=== PATIENT | male | born 1960 | race Caucasian/White ===

== ENCOUNTER 2023-11-05 01:08 | Day surgery (SDC) | payer OTHER, SELFPAY ==
[2023-10-12 12:21] VITALS: BMI 32.0
--- NOTE | 2023-11-03 09:53 | SUR.PREOP ---
Patient called regarding upcoming procedure. Reviewed preop instructions, appointment times, and procedure prep. pt has no further questions.
--- NOTE | 2023-11-03 20:56 | PM.HPGS ---
History of Present Illness History of Present Illness Consent: Risks, benefits, and alternatives have been discussed and questions answered. Patient agrees to proceed with procedure. Chief complaint: hx of colon polyps Narrative: Amilcar Bright is a 63 year old male who is referred for colon cancer screening. He had polyps removed 8 years ago. His last colonoscopy which was 5 years ago was free of polyps. Review of Systems Review of Systems: All systems reviewed & are unremarkable except as noted in HPI and below PMFSH Social History Social History Smoking status: Former smoker Alcohol intake: current Drinks per week: 12 Substance use type: does not use Living arrangements: other Additional living arrangements comments: with sp Meds Home Medications and Allergies Home Medications Medication Instructions Recorded Confirmed Type lisinopril 20 1 tablet PO DAILY 10/12/23 10/12/23 History mg-hydrochlorothiazide 12.5 mg tablet Allergies Allergy/AdvReac Type Severity Reaction Status Date / Time No Known Allergies Allergy Unknown Verified 11/05/23 07:52 Exam Resp: Auscultation: clear to auscultation bilaterally Cardio: Rate: regular rate Rhythm: regular rhythm GI: GI Palp: Yes Soft to palpation and No Tenderness to palpation present (GI) Assessment and Plan Assessment and plan (1) Colon cancer screening: Code(s): Z12.11 - Encounter for screening for malignant neoplasm of colon Status: Acute Assessment and Plan: Colonoscopy with possible biopsy or polypectomy or cautery or injection of substances.
[2023-11-05 07:53] VITALS: BP 125/70; PULSE 76; RESP 18; TEMP 36.1; O2SAT 98
[2023-11-05] MEDS: LACTATED RINGERS 1,000 ML 150 ML IV CONT (08:03)
--- NOTE | 2023-11-05 08:43 | WPDANESEPPF ---
Anes - Initial Pre Proc Eval Procedure: Operation Date: 11/05/23 09:00 Proposed Procedures p Colonoscopy - David Shah MD Date/Time: 11/05/23 08:43 Surgeon: David Shah MD Pre Op Diagnosis: hx of colon polyps Patient Data Age: 63 Gender: M Height: 1.83 m Weight: 105.5 kg Last Vital Signs Temp 97 F L 11/05/23 07:53 Pulse 76 11/05/23 07:53 Resp 18 11/05/23 07:53 BP 125/70 11/05/23 07:53 Pulse Ox 98 11/05/23 07:53 O2 Del Method Room Air 11/05/23 07:53 Allergies Allergy/AdvReac Type Severity Reaction Status Date / Time No Known Allergies Allergy Unknown Verified 11/05/23 07:52 Home Medications Medication Instructions Recorded Confirmed Type lisinopril 20 1 tablet PO DAILY 10/12/23 10/12/23 History mg-hydrochlorothiazide 12.5 mg tablet Patient hx anesthesia problems: none Family hx anesthesia problems: none Results Review: All pre-operative results and documents have been reviewed as part of the pre-operative evaluation. [facility] Social History Social History Smoking status: Former smoker Alcohol intake: current Drinks per week: 12 Substance use type: does not use Living arrangements: other Additional living arrangements comments: with sp Anes - Eval Final PreProcedure Day of Procedure 11/05/23 08:43 Patient weight: obese Heart: regular rate and rhythm Lungs: clear to auscultation Airway: Mallampati scale class II Neurological: alert and oriented Last oral intake: >/= 8 hours ASA classification: II Emergent: no Anesthetic plan: proceed Anesthesia type and monitoring: general GIVS and standard monitoring Results Review: All pre-operative results and documents have been reviewed as part of the pre-operative evaluation. Informed Consent: The patient's anesthetic plan and its attendant risks and benefits were discussed with the patient/family/POA. Questions were solicited and answers provided to the satisfaction of the patient/family/POA.
[2023-11-05 09:26] VITALS: BP 104/53; PULSE 65; RESP 20; O2SAT 95
[2023-11-05 09:36] VITALS: BP 110/71; PULSE 71; RESP 22; O2SAT 97
[2023-11-05 09:46] VITALS: BP 114/71; PULSE 61; RESP 17; O2SAT 98
== END 2023-11-05 09:52 | disposition home or self-care (01) ==
PROVIDERS: PCP Internal Medicine; Visit Provider Internal Medicine Gastroenterology
PROC: 0DJD8ZZ Inspection of Lower Intestinal Tract, Via Natural or Artificial Opening Endoscopic (ICD-10-PCS; CPT 45378; principal; 2023-11-05 09:00)
DX: Z12.11 Encounter for screening for malignant neoplasm of colon (principal); K63.5 Polyp of colon; K57.30 Diverticulosis of large intestine without perforation or abscess without bleeding; Z87.891 Personal history of nicotine dependence; E66.9 Obesity, unspecified; Z68.31 Body mass index [BMI] 31.0-31.9, adult
CPT/HCPCS: 45380; 88305; J2371; J2704; J7120